=== PATIENT | male | born 1945 | race Caucasian/White ===

== ENCOUNTER 2021-12-27 09:54 | Emergency (ER) | payer MEDICARE, OTHER ==
[~2021-12-27 09:54] MED LIST: DESYREL50 MG PO; DIGOX250 MCG PO; DUTASTERIDE-TA1 EACH PO; FAMOTIDINE20 MG PO; GAS RELIEF125 M1 PO; METOPROLOL SUCC50 MG PO; PREDNISONE50 M1 PO
[2021-12-27] MEDS ORDERED: NORCO 5-325 TA1 EACH PO (12:48)
--- NOTE | 2021-12-30 13:42 | NUR ---
PATIENT CALLED THE EMERGENCY ROOM ASKING FOR AN ARRIVAL TIME FOR HIS SURGERY ON FRIDAY WITH DR. ACHARYA. AFTER REVIEWING HIS CHART, HE WAS SEEN IN THE ED ON 12/27/21 FOR ANKLE FRACTURE AND WAS TOLD BY THE ED TEAM THAT HE SHOULD EXPECT TO HAVE SURGERY ON FRIDAY. INFORMED PATIENT OF THE PROCESS FOR ADD ON PROCEDURES. ATTEMPTING TO CALL DR. ACHARYA TO FURTHER DISCUSS THIS SO THAT INSTRUCTIONS CAN BE PROVIDED TO THE PATIENT. THE PATIENT REPORTS HE IS ON [facility]. HE WAS INSTRUCTED TO AWAIT A PHONE CALL FOR FURTHER INFORMATION. HE VERBALIZED UNDERSTANDING OF THE PLAN.
[2021-12-31] MEDS ORDERED: LYRICA 50MG CAP50 MG PO (08:06)
== END 2021-12-27 13:36 | disposition home or self-care (01) ==
LOC: FER 09:54
DX: S82.851A Displaced trimalleolar fracture of right lower leg, initial encounter for closed fracture (principal); I10 Essential (primary) hypertension; W18.2XXA Fall in (into) shower or empty bathtub, initial encounter; Y92.009 Unspecified place in unspecified non-institutional (private) residence as the place of occurrence of the external cause
CPT/HCPCS: 70450; 73590; 73600; 73610; 96374; 96375; 99152; J1642; J2270; J2405; J7040

== ENCOUNTER 2021-12-31 13:37 | Day surgery (SDCO) | payer MEDICARE, OTHER ==
[~2021-12-31] VITALS: Ht 185.4 cm; Wt 99.4 kg
[~2021-12-31 13:37] MED LIST changes: +LYRICA 50MG CAP50 MG PO; +NORCO 5-325 TA1 EACH PO
[2021-12-31] MEDS ORDERED: ELIQUIS5 MG PO (14:18)
[2021-12-31 14:39] LABS: HCT 26.6 % (42.0-52.0); HGB 8.9 g/dl (13.2-18.0); MCH 32.2 pg (25.0-31.0); MCHC 33.5 g/dL (32.0-36.0); MCV 96.4 fL (78.0-100.0); MPV 10.2 fL (6.0-9.5); RBC 2.76 M/uL (4.70-6.00); RDW 14.3 % (11.5-14.0); WBC 4.1 K/uL (4.0-10.5)
[2021-12-31 15:05] LABS: BUN/CREAT RATIO (CALC) 24.4 RATIO; CREATININE 0.86 mg/dL (0.67-1.17); POTASSIUM 4.2 mmol/L (3.5-5.1)
--- NOTE | 2021-12-31 20:49 | NUR ---
PATIENT STATES "I'M NOT ANSWERING THE SAME QUESTIONS 5 TIMES, YOU CAN LOOK STUFF UP IN MY CHART." UNABLE TO OBTAIN HISTORY FROM PATIENT DUE TO REFUSAL.
[2022-01-01 07:01] LABS: BASOPHIL 0 % (0-2); EOSINOPHIL 0.4 % (0-7); HCT 23.5 % (42.0-52.0); HGB 7.7 g/dl (13.2-18.0); LYMPHOCYTE 1.1 % (15-48); MCH 31.4 pg (25.0-31.0); MCHC 32.8 g/dL (32.0-36.0); MCV 95.9 fL (78.0-100.0); MONOCYTE 5.4 % (0-12); MPV 10.8 fL (6.0-9.5); NEUTROPHIL 92.7 % (41-80); NRBC 0; RBC 2.45 M/uL (4.70-6.00); RDW 14.6 % (11.5-14.0); WBC 4.7 K/uL (4.0-10.5)
[2022-01-01 07:07] LABS: IRON % SATURATION 8.8 %SAT (20-50)
[2022-01-01 07:08] LABS: PLT 64 K/uL (150-400)
[2022-01-01 07:09] LABS: RETICULOCYTE COUNT 1.1 % (1.0-2.0)
[2022-01-01 07:12] LABS: BUN/CREAT RATIO (CALC) 31.2 RATIO; CREATININE 0.77 mg/dL (0.67-1.17); POTASSIUM 4.2 mmol/L (3.5-5.1)
--- NOTE | 2022-01-01 13:22 | NUR ---
01/01/22 Mr. Kuhn lives at home with his spouse. He reports to have a walker, crutches, and wc. He does not wish to have HH or outpatient therapy.
[2022-01-01] MEDS ORDERED: ZPAK PO (13:24)
[2022-01-01] MEDS ORDERED: CEFDINIR300 MG PO (13:24)
[2022-01-01] MEDS ORDERED: ONDANSETRON ODT4 MG PO (13:24)
== END 2022-01-01 15:07 | disposition home or self-care (01) ==
LOC: FAS 13:37 → FMS 19:06
PROVIDERS: Nurse Practitioner Acute Care; ADMIT Legal Medicine
DX: S82.851A Displaced trimalleolar fracture of right lower leg, initial encounter for closed fracture (principal); S93.431A Sprain of tibiofibular ligament of right ankle, initial encounter; G89.18 Other acute postprocedural pain; C85.15 Unspecified B-cell lymphoma, lymph nodes of inguinal region and lower limb; D69.6 Thrombocytopenia, unspecified; I10 Essential (primary) hypertension; N40.0 Benign prostatic hyperplasia without lower urinary tract symptoms; D50.9 Iron deficiency anemia, unspecified; J20.9 Acute bronchitis, unspecified; R73.9 Hyperglycemia, unspecified; Z79.01 Long term (current) use of anticoagulants; Z79.899 Other long term (current) drug therapy; W18.2XXA Fall in (into) shower or empty bathtub, initial encounter
CPT/HCPCS: 36415; 73600; 76000; 80048; 82607; 82728; 82746; 83036; 83540; 83550; 85025; 94010; 94762; 97161; 97530-GP; C1713; G0378; J0690; J1100; J1170; J1885; J2250; J2370; J2704; J2795; J2916; J3010; J7120; Q0162

== ENCOUNTER 2022-01-15 19:13 | Inpatient (IN) | payer MEDICARE, OTHER ==
[~2022-01-15] VITALS: Ht 185.4 cm; Wt 94.0 kg
[~2022-01-15 19:13] MED LIST changes: +CEFDINIR300 MG PO; +ELIQUIS5 MG PO; +ONDANSETRON ODT4 MG PO; +ZPAK PO
[2022-01-15 19:45] LABS: BASOPHIL 0.3 % (0-2); HCT 23.2 % (42.0-52.0); HGB 7.4 g/dl (13.2-18.0); LYMPHOCYTE 3.9 % (15-48); MCH 30.5 pg (25.0-31.0); MCHC 31.9 g/dL (32.0-36.0); MCV 95.5 fL (78.0-100.0); MONOCYTE 10.9 % (0-12); MPV 11.5 fL (6.0-9.5); NEUTROPHIL 81.2 % (41-80); NRBC 0; PLT 91 K/uL (150-400); RBC 2.43 M/uL (4.70-6.00); RDW 15.6 % (11.5-14.0); WBC 6.1 K/uL (4.0-10.5)
[2022-01-15 19:58] LABS: BUN/CREAT RATIO (CALC) 33.9 RATIO; CREATININE 0.56 mg/dL (0.67-1.17); POTASSIUM 4.2 mmol/L (3.5-5.1)
[2022-01-15 20:07] LABS: LACTIC ACID 1.6 mmol/L (0.4-1.9)
[2022-01-15 20:19] LABS: CORONAVIRUS 2019 SARS-COV-2 NEGATIVE (NEGATIVE); INFLUENZA A NAA NEGATIVE (NEGATIVE)
[2022-01-16] MEDS ORDERED: LASIX20 MG PO (00:51)
[2022-01-16] MEDS ORDERED: MUCINEX 600MG600 MG PO (00:52)
[2022-01-16 05:38] LABS: BASOPHIL 0.2 % (0-2); EOSINOPHIL 0 % (0-7); HCT 23.4 % (42.0-52.0); HGB 7.5 g/dl (13.2-18.0); LYMPHOCYTE 2.7 % (15-48); MCH 30.9 pg (25.0-31.0); MCHC 32.1 g/dL (32.0-36.0); MCV 96.3 fL (78.0-100.0); MONOCYTE 1.2 % (0-12); MPV 11.9 fL (6.0-9.5); NEUTROPHIL 95.2 % (41-80); NRBC 0.5; RBC 2.43 M/uL (4.70-6.00); RDW 15.5 % (11.5-14.0); WBC 4.1 K/uL (4.0-10.5)
[2022-01-16 05:39] LABS: PLT 90 K/uL (150-400)
[2022-01-16 06:23] LABS: BUN/CREAT RATIO (CALC) 35.8 RATIO; CREATININE 0.53 mg/dL (0.67-1.17); POTASSIUM 4.6 mmol/L (3.5-5.1)
--- NOTE | 2022-01-16 10:32 | NUR ---
PER FERMÍN MORGAN RN ANKLE DRESSING DUE TO BE CHANGED PATIENT WAS IN [facility] [address] WITH CAM BOOT
--- NOTE | 2022-01-16 10:41 | NUR ---
CALL TO [facility] FOR MEDICAL RECORDS BUT THERE IS NO ANSWER ON THAT CONNECTION AND UNABLE TO LEAVE VOICEMAIL
--- NOTE | 2022-01-16 15:42 | NUR ---
01/16/22 Mr. Kuhn lives at home with his spouse. He has 02 at 2 L, portable tank, rw, wc, and crutches. [facility] is current and have been notified of admission via [facility]. Please notify [facility] at [phone] if patient discharges over the weekend.
[2022-01-16 19:32] LABS: CORONAVIRUS 229E NOT DETECTED (NOT DETECT); CORONAVIRUS HKU1 NOT DETECTED (NOT DETECT); CORONAVIRUS NL63 NOT DETECTED (NOT DETECT); CORONAVIRUS OC43 NOT DETECTED (NOT DETECT); HUMAN METAPNEUMO NOT DETECTED (NOT DETECT); INFLUENZA A NOT DETECTED (NOT DETECT); INFLUENZA A 2009 H1N1 NOT DETECTED (NOT DETECT); INFLUENZA A H1 NOT DETECTED (NOT DETECT); INFLUENZA A H3 NOT DETECTED (NOT DETECT); INFLUENZA B NOT DETECTED (NOT DETECT); PARAINFLUENZA 1 NOT DETECTED (NOT DETECT); PARAINFLUENZA 2 NOT DETECTED (NOT DETECT)
[2022-01-16 19:33] LABS: B. PERTUSSIS DNA NOT DETECTED (NOT DETECT); CHLAMYDOPHILA PNEUMON DNA PCR NOT DETECTED (NOT DETECT); CORONAVIRUS 2019 PCR NOT DETECTED (NOT DETECTD); MYCOPLASMA PNEUMONIAE NOT DETECTED (NOT DETECT); PARAINFLUENZA 3 NOT DETETED (NOT DETECT); PARAINFLUENZA 4 NOT DETECTED (NOT DETECT); RESPIRATORY SYNCYTIAL VIRUS NOT DETECTED (NOT DETECT)
[2022-01-17 07:10] LABS: BASOPHIL 0.2 % (0-2); EOSINOPHIL 0.3 % (0-7); LYMPHOCYTE 3.4 % (15-48); MCH 30.7 pg (25.0-31.0); MCHC 31.8 g/dL (32.0-36.0); MCV 96.5 fL (78.0-100.0); MPV 11.2 fL (6.0-9.5); NEUTROPHIL 87.5 % (41-80); NRBC 0; RBC 2.28 M/uL (4.70-6.00); WBC 6.4 K/uL (4.0-10.5)
[2022-01-17 08:20] LABS: PLT 83 K/uL (150-400)
[2022-01-17 09:15] LABS: CREATININE 0.91 mg/dL (0.67-1.17); POTASSIUM 4.4 mmol/L (3.5-5.1)
--- NOTE | 2022-01-18 01:34 | NUR ---
ON PTS SECOND UNIT OF BLOOD, NURSE ACCIDENTLY HAD RUNNING AT 350 ML/HR FOR 200 ML. GROUP HOME PARAPROFESSIONAL NOTIFIED, NO REACTION OR RESPONSE FROM PATIENT. VITAL SIGNS STILL STABLE, WILL CONTINUE TO MONITOR.
[2022-01-18 05:22] LABS: BASOPHIL 0.4 % (0-2); EOSINOPHIL 4.4 % (0-7); HCT 27.6 % (42.0-52.0); HGB 8.9 g/dl (13.2-18.0); LYMPHOCYTE 2.5 % (15-48); MCH 29.9 pg (25.0-31.0); MCHC 32.2 g/dL (32.0-36.0); MCV 92.6 fL (78.0-100.0); MONOCYTE 11.4 % (0-12); MPV 11.9 fL (6.0-9.5); NEUTROPHIL 80.9 % (41-80); NRBC 0.4; PLT 82 K/uL (150-400); RBC 2.98 M/uL (4.70-6.00); RDW 17.9 % (11.5-14.0); WBC 4.7 K/uL (4.0-10.5)
[2022-01-18 05:54] LABS: BUN/CREAT RATIO (CALC) 35.9 RATIO; CREATININE 0.64 mg/dL (0.67-1.17); MAGNESIUM 2.1 mg/dL (1.8-2.4); POTASSIUM 4.1 mmol/L (3.5-5.1)
[2022-01-19 05:33] LABS: BASOPHIL 0.2 % (0-2); EOSINOPHIL 7.1 % (0-7); HCT 28.1 % (42.0-52.0); LYMPHOCYTE 3.5 % (15-48); MCH 29.7 pg (25.0-31.0); MCV 92.7 fL (78.0-100.0); MONOCYTE 11.6 % (0-12); MPV 11.6 fL (6.0-9.5); NRBC 0; RBC 3.03 M/uL (4.70-6.00); RDW 17.2 % (11.5-14.0); WBC 5.1 K/uL (4.0-10.5)
[2022-01-19 05:47] LABS: PLT 79 K/uL (150-400)
[2022-01-19 06:06] LABS: BUN/CREAT RATIO (CALC) 21.2 RATIO; CREATININE 0.66 mg/dL (0.67-1.17); MAGNESIUM 2.1 mg/dL (1.8-2.4); POTASSIUM 4.1 mmol/L (3.5-5.1)
== END 2022-01-19 19:09 | disposition other institution (70) | DRG 871 ==
LOC: FER 19:13 → FMS 01-16 01:47
PROVIDERS: Internal Medicine; Nurse Practitioner; Nurse Practitioner Family; ADMIT Allergy & Immunology Allergy
PROC: 3E03329 Introduction of Other Anti-infective into Peripheral Vein, Percutaneous Approach (ICD-10-PCS; principal; 2022-01-15)
PROC: 30233N1 Transfusion of Nonautologous Red Blood Cells into Peripheral Vein, Percutaneous Approach (ICD-10-PCS; 2022-01-17)
PROC: 30233N1 Transfusion of Nonautologous Red Blood Cells into Peripheral Vein, Percutaneous Approach (ICD-10-PCS; 2022-01-18)
DX: A41.9 Sepsis, unspecified organism (principal); J18.9 Pneumonia, unspecified organism; J96.01 Acute respiratory failure with hypoxia; D84.9 Immunodeficiency, unspecified; C85.15 Unspecified B-cell lymphoma, lymph nodes of inguinal region and lower limb; R65.20 Severe sepsis without septic shock; Z20.822 Contact with and (suspected) exposure to COVID-19; Y95 Nosocomial condition; I72.8 Aneurysm of other specified arteries; D50.9 Iron deficiency anemia, unspecified; R33.9 Retention of urine, unspecified; I10 Essential (primary) hypertension; I95.9 Hypotension, unspecified; I48.91 Unspecified atrial fibrillation; N40.1 Benign prostatic hyperplasia with lower urinary tract symptoms; R33.8 Other retention of urine; Z86.711 Personal history of pulmonary embolism; Z92.21 Personal history of antineoplastic chemotherapy; Z92.3 Personal history of irradiation; Z85.47 Personal history of malignant neoplasm of testis; Z79.01 Long term (current) use of anticoagulants; Z79.899 Other long term (current) drug therapy
CPT/HCPCS: 36415; 36430; 36600; 71045; 71275; 80048; 80202; 82607; 82728; 82803; 83540; 83550; 83605; 83735; 83880; 84145; 85025; 85379; 86140; 86850; 86900; 86901; 86922; 87040; 93005; 94010; 94640; 97162; 97166; 97530-GP; 97535; J1100; J2543; J3370; J7050; P9016; Q9967; U0002